=== PATIENT | male | born 1945 | race Caucasian/White ===

== ENCOUNTER 2018-07-24 18:39 | Inpatient (IN) | payer OTHER ==
[~2018-07-24] VITALS: Ht 180.3 cm; Wt 47.7 kg
[2018-07-24] MEDS ORDERED: HYDROcodone/APAP 5/325 TABLET ONE (18:55)
[2018-07-24] MEDS ORDERED: HYDROcodone/APAP 5/325 TABLET PO ONE (19:00)
[2018-07-24] MEDS ORDERED: PLEASE ENTER ALLERGIES MC SCH (19:00)
[2018-07-24] MEDS ORDERED: PLEASE ENTER HEIGHT AND WEIGHT MC SCH (19:00)
[2018-07-24 19:45] LABS: BASOPHILS # (AUTO) 0.02 x10^3/uL (0-0.1); BASOPHILS % (AUTO) 0 % (0-1); EOSINOPHILS # (AUTO) 0.24 x10^3/uL (0-0.4); EOSINOPHILS % (AUTO) 3 % (1-7); LYMPHOCYTES # (AUTO) 1.09 x10^3/uL (1-3.4); LYMPHOCYTES % (AUTO) 14 % (22-44); MD NO; MEAN CORPUSCULAR HEMOGLOBIN 30.3 pg (27.5-34.5); MEAN CORPUSCULAR HGB CONC 32.5 g/dL (33.2-36.2); MEAN CORPUSCULAR VOLUME 93.1 fL (81-97); MEAN PLATELET VOLUME 9.2 fL (7.4-10.4); MONOCYTES # (AUTO) 0.43 x10^3/uL (0.2-0.8); MONOCYTES % (AUTO) 6 % (2-9); NEUTROPHILS # (AUTO) 5.93 x10^3/uL (1.8-6.8); NEUTROPHILS % (AUTO) 77 % (42-75); PLATELET COUNT 183 x10^3/uL (130-400); RED CELL DISTRIBUTION WIDTH 14.3 % (9.4-14.8)
[2018-07-24 19:54] LABS: ALBUMIN 3.4 g/dL (3.4-5.0); ANION GAP 6 mmol/L (5-15); CALCIUM 8.6 mg/dL (8.5-10.1); CHLORIDE 106 mmol/L (98-107); CREATININE 0.63 mg/dL (0.7-1.3)
[2018-07-24 20:47] LABS: MICROSCOPIC NOT IND
[2018-07-24 20:48] LABS: CULTURE INDICATED? NO
[2018-07-24] MEDS ORDERED: KETOROLAC 30 MG/1 ML IM ONE (21:00)
[2018-07-24] MEDS ORDERED: KETOROLAC 30 MG/1 ML ONE (21:03)
[2018-07-24] MEDS ORDERED: SODIUM CHLORIDE 0.9% 1,000 ML IV SCH (22:38)
[2018-07-24] MEDS ORDERED: BISACODYL 10 MG SUPP PR PRN (23:00)
[2018-07-24] MEDS ORDERED: ONDANSETRON ODT 4 MG PO PRN (23:00)
[2018-07-24] MEDS: ENOXAPARIN 40 MG/0.4 ML SQ SCH (23:00)
[2018-07-24] MEDS ORDERED: ACETAMINOPHEN 325 MG TABLET PO PRN (23:00)
[2018-07-24] MEDS ORDERED: hydrALAzine 20 MG/ML, 1ML IVPush PRN (23:00)
[2018-07-24] MEDS ORDERED: morphine SULFATE 10 MG/ML, 1ML IVPush PRN (23:00)
[2018-07-24] MEDS ORDERED: KETOROLAC 30 MG/1 ML IM PRN (23:00)
[2018-07-24] MEDS ORDERED: LABETALOL 5MG/ML, 20ML IVPush PRN (23:00)
[2018-07-24] MEDS: NICOTINE 14MG/24 HR PATCH.TD24 TD SCH (23:00)
[2018-07-24] MEDS ORDERED: ONDANSETRON 2MG/ML, 2ML IVPush PRN (23:00)
[2018-07-24] MEDS ORDERED: PROMETHAZINE 25 MG/ML, 1ML IM PRN (23:00)
[2018-07-24] MEDS ORDERED: POLYETHYLENE GLYCOL 17 GM PACKET PO PRN (23:00)
[2018-07-24] MEDS ORDERED: GABAPENTIN 300 MG CAPSULE PO PRN (23:00)
[2018-07-24 23:07] LABS: HEMOGLOBIN A1C 5.9 % (4.2-6.3)
[2018-07-24 23:24] LABS: FREE T4 (FREE THYROXINE) 1.2 ng/dL (0.76-1.46); PSA SCREEN 2.17 ng/mL (0.00-4.00); THYROID STIMULATING HORMONE 0.468 mIU/L (0.358-3.740)
[2018-07-25] MEDS ORDERED: ALBUTEROL SULFATE 2.5 MG/3 ML NPPB PRN
[2018-07-25 00:03] VITALS: BP 133/79
[2018-07-25] MEDS: CYCLOBENZAPRINE 10 MG TABLET PO PRN ×3 (01:40→21:03)
[2018-07-25 02:06] VITALS: BP 128/80
[2018-07-25] MEDS: ALBUTEROL SULFATE 2.5 MG/3 ML NPPB SCH ×4 (06:50→20:44)
[2018-07-25 07:45] VITALS: BP 121/76
[2018-07-25] MEDS: SENNA/DOCUSATE TABLET PO SCH (07:53)
[2018-07-25] MEDS: BUDESONIDE 0.5 MG/2 ML INHA NPPB SCH ×2 (08:39→20:43)
[2018-07-25] MEDS ORDERED: FLUTICASONE/VILANTEROL 200-25MCG/INH INH SCH (09:00)
[2018-07-25 12:32] LABS: BASOPHILS # (AUTO) 0.03 x10^3/uL (0-0.1); BASOPHILS % (AUTO) 1 % (0-1); EOSINOPHILS # (AUTO) 0.22 x10^3/uL (0-0.4); EOSINOPHILS % (AUTO) 4 % (1-7); LYMPHOCYTES % (AUTO) 18 % (22-44); MD NO; MEAN CORPUSCULAR HEMOGLOBIN 30.4 pg (27.5-34.5); MEAN CORPUSCULAR HGB CONC 32.5 g/dL (33.2-36.2); MEAN CORPUSCULAR VOLUME 93.5 fL (81-97); MEAN PLATELET VOLUME 8.9 fL (7.4-10.4); MONOCYTES # (AUTO) 0.36 x10^3/uL (0.2-0.8); MONOCYTES % (AUTO) 7 % (2-9); NEUTROPHILS # (AUTO) 3.88 x10^3/uL (1.8-6.8); NEUTROPHILS % (AUTO) 71 % (42-75); PLATELET COUNT 172 x10^3/uL (130-400); RED BLOOD COUNT 3.89 x10^6/uL (4.38-5.82); RED CELL DISTRIBUTION WIDTH 14.1 % (9.4-14.8)
[2018-07-25 12:36] LABS: ALANINE AMINOTRANSFERASE 20 U/L (12-78); ANION GAP 4 mmol/L (5-15); CALCIUM 7.9 mg/dL (8.5-10.1); CHLORIDE 108 mmol/L (98-107); CHOLESTEROL, TOTAL 133 mg/dL (140-239); CREATININE 0.71 mg/dL (0.7-1.3)
[2018-07-25 12:38] LABS: ALKALINE PHOSPHATASE 56 U/L (45-117); BILIRUBIN,TOTAL 0.4 mg/dL (0.2-1.0); CHOL/HDL RATIO 2.5; HDL CHOL % 40 % (26-37); HDL CHOLESTEROL (DIRECT) 53 mg/dL (40-60); LDL CHOLESTEROL,CALCULATED 68 mg/dL (54-169); LDL/HDL RATIO 1.3 (0.5-3.0); TOTAL PROTEIN 5.7 g/dL (6.4-8.2); TRIGLYCERIDES 61 mg/dL (50-200); VLDL CHOLESTEROL 12 mg/dL (0-25)
[2018-07-25 14:53] VITALS: BP 123/79
[2018-07-25] MEDS ORDERED: GABAPENTIN 100 MG CAPSULE ONE (20:53)
[2018-07-25] MEDS ORDERED: GABAPENTIN 300 MG CAPSULE PO SCH (21:00)
[2018-07-25] MEDS: MAGNESIUM OXIDE 400 MG TABLET PO SCH (21:03)
[2018-07-25] MEDS: GABAPENTIN 100 MG CAPSULE PO SCH (21:03)
[2018-07-25 21:45] VITALS: BP 104/67
[2018-07-25] MEDS: ENOXAPARIN 40 MG/0.4 ML SQ SCH (23:00)
[2018-07-25] MEDS: NICOTINE 14MG/24 HR PATCH.TD24 TD SCH (23:00)
[2018-07-26 01:07] VITALS: BP 106/65
[2018-07-26] MEDS: ALBUTEROL SULFATE 2.5 MG/3 ML NPPB SCH ×4 (03:00→21:00)
[2018-07-26 08:00] VITALS: BP 152/88
[2018-07-26] MEDS: MAGNESIUM OXIDE 400 MG TABLET PO SCH ×2 (09:15→20:42)
[2018-07-26] MEDS: CHOLECALCIFEROL 5,000u TAB PO SCH (09:15)
[2018-07-26] MEDS: GABAPENTIN 100 MG CAPSULE PO SCH ×2 (09:15→20:42)
[2018-07-26] MEDS: BUDESONIDE 0.5 MG/2 ML INHA NPPB SCH ×2 (10:30→21:00)
[2018-07-26] MEDS: SENNA/DOCUSATE TABLET PO SCH (11:47)
[2018-07-26 13:43] LABS: MICROSCOPIC NOT IND
[2018-07-26 13:44] VITALS: BP 107/69
[2018-07-26 13:47] LABS: CULTURE INDICATED? NO
[2018-07-26 21:58] VITALS: BP 121/80
[2018-07-26] MEDS: NICOTINE 14MG/24 HR PATCH.TD24 TD SCH (23:00)
[2018-07-26] MEDS: ENOXAPARIN 40 MG/0.4 ML SQ SCH (23:00)
[2018-07-27 02:24] VITALS: BP 100/59
[2018-07-27] MEDS: ALBUTEROL SULFATE 2.5 MG/3 ML NPPB SCH ×4 (03:00→19:16)
[2018-07-27 06:42] VITALS: BP 113/71
[2018-07-27] MEDS: BUDESONIDE 0.5 MG/2 ML INHA NPPB SCH ×2 (06:45→19:17)
[2018-07-27] MEDS: MAGNESIUM OXIDE 400 MG TABLET PO SCH ×2 (08:25→20:53)
[2018-07-27] MEDS: SENNA/DOCUSATE TABLET PO SCH (08:25)
[2018-07-27] MEDS: CHOLECALCIFEROL 5,000u TAB PO SCH (08:25)
[2018-07-27] MEDS: GABAPENTIN 100 MG CAPSULE PO SCH ×2 (08:25→20:53)
[2018-07-27 12:38] VITALS: BP 117/71
[2018-07-27 18:47] VITALS: BP 118/67
[2018-07-27] MEDS: ENOXAPARIN 40 MG/0.4 ML SQ SCH (20:58)
[2018-07-27] MEDS: NICOTINE 14MG/24 HR PATCH.TD24 TD SCH (20:59)
[2018-07-28 00:54] VITALS: BP 97/54
[2018-07-28] MEDS: ALBUTEROL SULFATE 2.5 MG/3 ML NPPB SCH ×4 (02:37→20:06)
[2018-07-28] MEDS: CYCLOBENZAPRINE 10 MG TABLET PO PRN (04:48)
[2018-07-28 06:54] VITALS: BP 96/62
[2018-07-28] MEDS: BUDESONIDE 0.5 MG/2 ML INHA NPPB SCH ×2 (07:40→20:06)
[2018-07-28] MEDS: GABAPENTIN 100 MG CAPSULE PO SCH ×3 (08:20→20:57)
[2018-07-28] MEDS: CHOLECALCIFEROL 5,000u TAB PO SCH (08:20)
[2018-07-28] MEDS: MAGNESIUM OXIDE 400 MG TABLET PO SCH ×2 (08:20→20:57)
[2018-07-28] MEDS: SENNA/DOCUSATE TABLET PO SCH (08:21)
[2018-07-28] MEDS: LIDOCAINE 4% CREAM 5GM TUBE TP SCH ×3 (11:29→20:58)
[2018-07-28 12:35] VITALS: BP 115/75
[2018-07-28 20:52] VITALS: BP 120/71
[2018-07-28] MEDS: ENOXAPARIN 40 MG/0.4 ML SQ SCH (20:57)
[2018-07-28] MEDS: NICOTINE 14MG/24 HR PATCH.TD24 TD SCH (20:58)
[2018-07-29 02:18] VITALS: BP 114/72
[2018-07-29] MEDS: ALBUTEROL SULFATE 2.5 MG/3 ML NPPB SCH ×3 (03:00→14:00)
[2018-07-29] MEDS: LIDOCAINE 4% CREAM 5GM TUBE TP SCH ×2 (06:12→11:35)
[2018-07-29 07:50] VITALS: BP 101/71
[2018-07-29] MEDS: BUDESONIDE 0.5 MG/2 ML INHA NPPB SCH (08:15)
[2018-07-29] MEDS: GABAPENTIN 100 MG CAPSULE PO SCH (08:38)
[2018-07-29] MEDS: MAGNESIUM OXIDE 400 MG TABLET PO SCH (08:40)
[2018-07-29] MEDS: CHOLECALCIFEROL 5,000u TAB PO SCH (08:41)
[2018-07-29] MEDS: SENNA/DOCUSATE TABLET PO SCH (08:41)
[2018-07-29] MEDS ORDERED: CYCL-259 PO (10:50)
[2018-07-29] MEDS ORDERED: CHOL500015 PO (10:50)
[2018-07-29] MEDS ORDERED: GABA-826 PO (10:51)
[2018-07-29 12:43] VITALS: BP 110/74
[2018-07-29 14:29] VITALS: BP 144/78
== END 2018-07-29 15:00 | disposition left against medical advice (07) | DRG 542 ==
LOC: ED 22:20 → EDIP 22:30 → 4NOR 23:57 → DCLOUNGE 07-29 14:44
PROVIDERS: ADMIT Internal Medicine; ATTEND Internal Medicine
DX: M80.08XA Age-related osteoporosis with current pathological fracture, vertebra(e), initial encounter for fracture (principal); E43 Unspecified severe protein-calorie malnutrition; J96.10 Chronic respiratory failure, unspecified whether with hypoxia or hypercapnia; R64 Cachexia; Z68.1 Body mass index [BMI] 19.9 or less, adult; S33.5XXA Sprain of ligaments of lumbar spine, initial encounter; F17.210 Nicotine dependence, cigarettes, uncomplicated; J44.9 Chronic obstructive pulmonary disease, unspecified; G89.29 Other chronic pain; M54.9 Dorsalgia, unspecified; M47.816 Spondylosis without myelopathy or radiculopathy, lumbar region; E83.42 Hypomagnesemia; Z79.899 Other long term (current) drug therapy; X50.0XXA Overexertion from strenuous movement or load, initial encounter; Y93.F2 Activity, caregiving, lifting; Y99.0 Civilian activity done for income or pay
CPT/HCPCS: 36415; 72110; 99285; J7613; J7626; 72131; 72148; 80048; 80053; 80061; 81003; 82040; 82306; 82607; 83036; 83735; 84439; 84443; 85025; 94640; 96372; G0103; G0378; J1885; J7030

== ENCOUNTER 2018-07-29 17:50 | Emergency (ER) | payer OTHER ==
[~2018-07-29] VITALS: Ht 180.3 cm; Wt 45.5 kg
[~2018-07-29 17:50] MED LIST: CHOL500015 PO; CYCL-259 PO; GABA-826 PO
[2018-07-29] MEDS ORDERED: HYDROcodone/APAP 5/325 TABLET ONE (18:28)
[2018-07-29] MEDS ORDERED: HYDROcodone/APAP 5/325 TABLET PO ONE (18:30)
[2018-07-29 19:31] VITALS: BP 134/73
== END 2018-07-29 21:45 | disposition short-term general hospital (02) ==
LOC: ED 18:31
DX: G89.29 Other chronic pain (principal); M54.5 Low back pain; E46 Unspecified protein-calorie malnutrition; R53.81 Other malaise; J43.9 Emphysema, unspecified
CPT/HCPCS: 99285

== ENCOUNTER 2019-08-06 15:53 | Inpatient (IN) | payer OTHER ==
[~2019-08-06] VITALS: Ht 180.3 cm; Wt 48.8 kg
--- NOTE | 2019-08-06 16:07 | NUR ---
PT BIB BY [facility]. STATES HS FELT ILL FOR 3 DAYS. HE HASNT BEEN SLEEPING.IT HAS BEEN 2 OR 3 DAYS SINCE HE LAST ATE. BARLEY ABLE TO DRINK WATER. PT IN HOSPITAL BED. CALL LIGHT WITHIN REACH
[2019-08-06] MEDS ORDERED: ONDANSETRON 2MG/ML, 2ML IVPush ONE (16:30)
[2019-08-06 17:08] LABS: BASOPHILS % (AUTO) 0 % (0-1); EOSINOPHILS # (AUTO) 0.16 x10^3/uL (0-0.4); EOSINOPHILS % (AUTO) 1 % (1-7); LYMPHOCYTES # (AUTO) 0.34 x10^3/uL (1-3.4); LYMPHOCYTES % (AUTO) 3 % (22-44); MD NO; MEAN CORPUSCULAR HEMOGLOBIN 31.5 pg (27.5-34.5); MEAN CORPUSCULAR HGB CONC 32.1 g/dL (33.2-36.2); MEAN CORPUSCULAR VOLUME 98.3 fL (81-97); MEAN PLATELET VOLUME 9.7 fL (7.4-10.4); MONOCYTES # (AUTO) 0.31 x10^3/uL (0.2-0.8); MONOCYTES % (AUTO) 3 % (2-9); NEUTROPHILS # (AUTO) 11.48 x10^3/uL (1.8-6.8); NEUTROPHILS % (AUTO) 93 % (42-75); PLATELET COUNT 191 x10^3/uL (130-400); RED BLOOD COUNT 4.86 x10^6/uL (4.38-5.82); RED CELL DISTRIBUTION WIDTH 14.5 % (9.4-14.8)
[2019-08-06] MEDS ORDERED: ONDANSETRON 2MG/ML, 2ML ONE (17:15)
[2019-08-06 17:19] LABS: ALANINE AMINOTRANSFERASE 647 U/L (12-78); ALBUMIN 3.1 g/dL (3.4-5.0); ANION GAP 3 mmol/L (5-15); CALCIUM 8.6 mg/dL (8.5-10.1); CHLORIDE 104 mmol/L (98-107); CREATININE 2.24 mg/dL (0.7-1.3)
[2019-08-06 17:23] LABS: ALKALINE PHOSPHATASE 102 U/L (45-117); BILIRUBIN,TOTAL 1.3 mg/dL (0.2-1.0); TOTAL PROTEIN 7.6 g/dL (6.4-8.2)
--- NOTE | 2019-08-06 17:43 | NUR ---
PT RESTING IN HOSPITAL BED. UNDER 2 BLANKETS AND USING THE AIR WARMER TO HEAT THE BLANKETS. LAB IS IN WITH PT TAKING BLOOD CULTURES. NO REQUESTS AT THIS TIME
[2019-08-06] MEDS ORDERED: CEFTRIAXONE PMX 1GM/50ML 50 ML ONE (17:59)
[2019-08-06] MEDS ORDERED: CEFTRIAXONE PMX 1GM/50ML 50 ML IVPB ONE (18:00)
[2019-08-06] MEDS ORDERED: AZITHROMYCIN 500 MG in SODIUM CHLORIDE 0.9% 250 ML IV ONE (18:00)
[2019-08-06] MEDS ORDERED: SODIUM CHLORIDE 0.9% 1,000ML IVBOLUS ONE (18:00)
[2019-08-06 18:11] LABS: TROPONIN I 0.218 ng/mL (0.000-0.045)
--- NOTE | 2019-08-06 19:03 | NUR ---
PT IN HOSPITAL BED. ABX RUNNING IN IV. TV ON. WARM BLANKET PROVIDED. BLANKET WARMER ON. CALL LIGHT WITHIN REACH.
[2019-08-06] MEDS ORDERED: LIDODERM 5% PATCH TD PRN (20:30)
[2019-08-06] MEDS ORDERED: PHARMACY MAY ADJ FOR RENAL FX MC PRN (20:30)
[2019-08-06] MEDS ORDERED: NICOTINE 14MG/24 HR PATCH.TD24 TD PRN (20:30)
[2019-08-06] MEDS ORDERED: DOCUSATE 100 MG CAPSULE PO PRN (20:30)
--- NOTE | 2019-08-06 21:08 | NUR ---
PT RESTING IN HOPSITAL BED. AWAITING ROOM UPSTAIRS. NO REQUESTS AT THIS TIME
--- NOTE | 2019-08-06 22:10 | NUR ---
REPORT GIVEN TO MILKA CELESTE
--- NOTE | 2019-08-06 22:17 | NUR ---
RECEIVED REPORT FROM YUMIKO RN AT [id number] TO ASSUME CARE OF PT.
[2019-08-06 23:21] LABS: TROPONIN I 0.194 ng/mL (0.000-0.045)
[2019-08-06] MEDS ORDERED: HEPARIN 5,000 UNITS/ML, 1ML ONE (23:34)
[2019-08-06] MEDS ORDERED: BENZONATATE 100 MG CAPSULE ONE (23:34)
[2019-08-06] MEDS: D5%-0.45% NACL 1,000 ML IV SCH (23:57)
[2019-08-06] MEDS: BENZONATATE 100 MG CAPSULE PO SCH (23:57)
[2019-08-06] MEDS: HEPARIN 5,000 UNITS/ML, 1ML SQ SCH (23:58)
--- NOTE | 2019-08-06 23:59 | NUR ---
PT. MEDICATED PER MAR. PROVIDED WITH SNACKS PER REQUEST FOR FOOD. PT. DENIES OTHER NEEDS. MARKIE PAW WARMER IN USE FOR COMFORT. CALL LIGHT IN REACH. ALL SAFETY MEASURES OBSERVED. ALL MONITORS IN PLACE.
--- NOTE | 2019-08-07 00:58 | NUR ---
FLU SWAB COLLECTED AND SENT TO LAB. PT. AWAITING BED ASSIGNMENT PENDING FLU RESULTS.
--- NOTE | 2019-08-07 01:24 | NUR ---
CALLED LAB TO ENSURE THEY GOT THE FLU SWAB THAT HAD BEEN SENT; THEY ARE RUNNING IT NOW. PT. PROVIDED WITH SANDWICH PER REQUEST FOR FOOD. DENIES OTHER NEEDS.
--- NOTE | 2019-08-07 01:59 | NUR ---
CALL PLACED TO LAB AGAIN ABOUT FLU SWAB; THIS RN TOLD THAT SWAB CAN NOT BE FOUND.
--- NOTE | 2019-08-07 02:01 | NUR ---
LAB NOW REPORTS SPECIMEN HAS BEEN FOUND AND IS BEING STARTED NOW.
[2019-08-07 02:26] LABS: RAPID INFLUENZA A Negative (Negative); RAPID INFLUENZA B Negative (Negative)
--- NOTE | 2019-08-07 02:29 | NUR ---
PT. ATE 1/2 OF SANDWICH PROVIDED ALONG WITH SOME APPLESAUCE AND JELLO. PT. ASSISTED TO VOID VIA URINAL. 50ML OF CLEAR YELLOW URINE. DENIES OTHER NEEDS. ALL SAFETY MEASURES OBSERVED. ALL MONITORS REMAIN IN PLACE. MARKIE SCHNEIDER IN USE FOR COMFORT.
--- NOTE | 2019-08-07 02:36 | NUR ---
REPORT TO BOOKER AUGUSTE. FLOOR READY FOR PT. TRANSPORT.
[2019-08-07 03:00] VITALS: BP 124/76
[2019-08-07 04:51] LABS: ANION GAP 4 mmol/L (5-15); CALCIUM 7.8 mg/dL (8.5-10.1); CHLORIDE 107 mmol/L (98-107); CREATININE 1.91 mg/dL (0.7-1.3)
[2019-08-07 04:55] LABS: TROPONIN I 0.184 ng/mL (0.000-0.045)
[2019-08-07 04:58] LABS: BASOPHILS % (AUTO) 0 % (0-1); EOSINOPHILS # (AUTO) 0.07 x10^3/uL (0-0.4); EOSINOPHILS % (AUTO) 1 % (1-7); LYMPHOCYTES # (AUTO) 0.41 x10^3/uL (1-3.4); LYMPHOCYTES % (AUTO) 5 % (22-44); MD NO; MEAN CORPUSCULAR HEMOGLOBIN 31.5 pg (27.5-34.5); MEAN CORPUSCULAR HGB CONC 32.1 g/dL (33.2-36.2); MEAN CORPUSCULAR VOLUME 98.3 fL (81-97); MEAN PLATELET VOLUME 10.6 fL (7.4-10.4); MONOCYTES # (AUTO) 0.29 x10^3/uL (0.2-0.8); MONOCYTES % (AUTO) 3 % (2-9); NEUTROPHILS # (AUTO) 8.29 x10^3/uL (1.8-6.8); NEUTROPHILS % (AUTO) 92 % (42-75); PLATELET COUNT 164 x10^3/uL (130-400); RED BLOOD COUNT 3.79 x10^6/uL (4.38-5.82); RED CELL DISTRIBUTION WIDTH 13.9 % (9.4-14.8)
[2019-08-07] MEDS ORDERED: ALBUTEROL SULFATE 2.5 MG/3 ML NPPB PRN (05:00)
[2019-08-07 08:25] VITALS: BP 130/82
[2019-08-07] MEDS: BENZONATATE 100 MG CAPSULE PO SCH ×3 (09:00→21:13)
[2019-08-07] MEDS: HEPARIN 5,000 UNITS/ML, 1ML SQ SCH ×3 (09:05→23:12)
[2019-08-07] MEDS: CEFTRIAXONE PMX 1GM/50ML 50 ML IV SCH ×2 (09:57→21:13)
[2019-08-07] MEDS: D5%-0.45% NACL 1,000 ML IV SCH ×2 (10:01→19:49)
[2019-08-07] MEDS: DOXYCYCLINE 100 MG in DEXTROSE 5% 250 ML IV SCH ×2 (11:10→22:09)
[2019-08-07 13:17] VITALS: BP 103/63
[2019-08-07] MEDS ORDERED: TRAZODONE 50MG TABLET ONE (18:13)
[2019-08-07] MEDS: TRAZODONE 50MG TABLET PO PRN (18:16)
[2019-08-07 18:39] VITALS: BP 92/57
[2019-08-07] MEDS: MIRTAZAPINE 15 MG TABLET PO SCH (21:13)
[2019-08-07] MEDS: ONDANSETRON 2MG/ML, 2ML IVPush PRN (22:09)
[2019-08-08 01:57] VITALS: BP_SYST 100; BP_SYST 98; BP_DIAS 46; BP_DIAS 66
[2019-08-08] MEDS: D5%-0.45% NACL 1,000 ML IV SCH ×2 (06:34→17:07)
[2019-08-08 06:51] VITALS: BP 135/81
[2019-08-08] MEDS: HEPARIN 5,000 UNITS/ML, 1ML SQ SCH ×2 (08:00→16:00)
[2019-08-08] MEDS: CEFTRIAXONE PMX 1GM/50ML 50 ML IV SCH ×2 (08:07→21:34)
[2019-08-08] MEDS: BENZONATATE 100 MG CAPSULE PO SCH ×3 (08:07→21:34)
[2019-08-08 09:24] LABS: TROPONIN I 0.146 ng/mL (0.000-0.045)
[2019-08-08 09:25] LABS: ANION GAP 7 mmol/L (5-15); CHLORIDE 107 mmol/L (98-107); CREATININE 1.28 mg/dL (0.7-1.3)
[2019-08-08 09:44] LABS: MD YES
[2019-08-08 10:24] LABS: MEAN CORPUSCULAR HEMOGLOBIN 31.3 pg (27.5-34.5); MEAN CORPUSCULAR HGB CONC 32.1 g/dL (33.2-36.2); MEAN CORPUSCULAR VOLUME 97.5 fL (81-97); MEAN PLATELET VOLUME 10.4 fL (7.4-10.4); PLATELET COUNT 119 x10^3/uL (130-400); RED BLOOD COUNT 3.72 x10^6/uL (4.38-5.82); RED CELL DISTRIBUTION WIDTH 14.3 % (9.4-14.8)
[2019-08-08 10:27] LABS: <RBC MORPHOLOGY> NORMAL; BAND#(MANUAL) 0.08 x10^3/uL; BANDS%(MANUAL) 1 % (0-7); EOS#(MANUAL) 0.31 x10^3/uL (0.0-0.4); EOS% (MANUAL) 4 % (1-7); LYMPH#(MANUAL) 0.39 x10^3/uL (1-3.4); LYMPHS% (MANUAL) 5 % (22-44); MONOS#(MANUAL) 0.15 x10^3/uL (0.3-2.7); MONOS% (MANUAL) 2 % (2-9); SEG#(MANUAL) 6.78 x10^3/uL (1.8-6.8); SEGS% (MANUAL) 88 % (42-75)
[2019-08-08 10:28] LABS: <PLATELET ESTIMATE> DECREASED; <PLT MORPHOLOGY> NORMAL PLT MORPH
[2019-08-08] MEDS: DOXYCYCLINE 100 MG in DEXTROSE 5% 250 ML IV SCH ×2 (11:33→23:33)
[2019-08-08 14:07] VITALS: BP 129/79
[2019-08-08 16:42] LABS: TROPONIN I 0.136 ng/mL (0.000-0.045)
[2019-08-08 19:08] VITALS: BP 100/61
[2019-08-08] MEDS: TRAZODONE 50MG TABLET PO PRN (21:34)
[2019-08-08] MEDS: MIRTAZAPINE 15 MG TABLET PO SCH (21:34)
[2019-08-08] MEDS ORDERED: MORPHINE SULFATE 4 MG/ML, 1ML IVPush ONE (23:30)
[2019-08-09 01:01] VITALS: BP 95/59
[2019-08-09] MEDS: D5%-0.45% NACL 1,000 ML IV SCH ×2 (04:43→09:00)
[2019-08-09] MEDS: HEPARIN 5,000 UNITS/ML, 1ML SQ SCH ×3 (08:00→16:00)
[2019-08-09] MEDS: CEFTRIAXONE PMX 1GM/50ML 50 ML IV SCH ×2 (08:30→20:47)
[2019-08-09] MEDS: BENZONATATE 100 MG CAPSULE PO SCH ×3 (09:16→20:47)
[2019-08-09 09:33] VITALS: BP 108/65
[2019-08-09] MEDS: DOXYCYCLINE 100 MG in DEXTROSE 5% 250 ML IV SCH ×2 (14:21→23:05)
[2019-08-09 14:52] VITALS: BP 93/59
[2019-08-09] MEDS: TRAZODONE 50MG TABLET PO PRN (17:07)
[2019-08-09 20:16] VITALS: BP 94/66
[2019-08-09] MEDS: MIRTAZAPINE 15 MG TABLET PO SCH (20:47)
[2019-08-09] MEDS ORDERED: TRAZODONE 50MG TABLET PO ONE (21:00)
[2019-08-09] MEDS ORDERED: ACETAMINOPHEN 500 MG TABLET PO ONE (23:30)
[2019-08-09] MEDS ORDERED: ACETAMINOPHEN 500 MG TABLET ONE (23:31)
[2019-08-10] MEDS: D5%-0.45% NACL 1,000 ML IV SCH ×2 (05:05→13:00)
[2019-08-10] MEDS: ONDANSETRON 2MG/ML, 2ML IVPush PRN ×3 (05:08→21:04)
[2019-08-10 06:59] VITALS: BP 127/84
[2019-08-10] MEDS: BENZONATATE 100 MG CAPSULE PO SCH ×3 (08:26→20:57)
[2019-08-10] MEDS: HEPARIN 5,000 UNITS/ML, 1ML SQ SCH ×4 (08:26→23:30)
[2019-08-10] MEDS: CEFTRIAXONE PMX 1GM/50ML 50 ML IV SCH (08:26)
[2019-08-10] MEDS: BUTALB/APAP/CAFFEINE 50MG/325MG/40MG PO PRN ×3 (10:46→23:30)
[2019-08-10] MEDS: DOXYCYCLINE 100 MG in DEXTROSE 5% 250 ML IV SCH (11:30)
[2019-08-10 14:05] VITALS: BP 97/67
[2019-08-10 20:39] VITALS: BP 117/73
[2019-08-10] MEDS: CEFDINIR 300 MG CAPSULE PO SCH (20:56)
[2019-08-10] MEDS: MIRTAZAPINE 15 MG TABLET PO SCH (20:57)
[2019-08-10] MEDS: TRAZODONE 50MG TABLET PO PRN (20:57)
[2019-08-11 01:33] VITALS: BP 114/77
[2019-08-11] MEDS: D5%-0.45% NACL 1,000 ML IV SCH ×2 (02:21→20:53)
[2019-08-11 05:34] LABS: BASOPHILS # (AUTO) 0.02 x10^3/uL (0-0.1); BASOPHILS % (AUTO) 0 % (0-1); EOSINOPHILS # (AUTO) 0.25 x10^3/uL (0-0.4); EOSINOPHILS % (AUTO) 4 % (1-7); LYMPHOCYTES # (AUTO) 1.19 x10^3/uL (1-3.4); LYMPHOCYTES % (AUTO) 19 % (22-44); MD NO; MEAN CORPUSCULAR HEMOGLOBIN 31.9 pg (27.5-34.5); MEAN CORPUSCULAR HGB CONC 32.4 g/dL (33.2-36.2); MEAN CORPUSCULAR VOLUME 98.5 fL (81-97); MEAN PLATELET VOLUME 9.8 fL (7.4-10.4); MONOCYTES # (AUTO) 0.36 x10^3/uL (0.2-0.8); MONOCYTES % (AUTO) 6 % (2-9); NEUTROPHILS % (AUTO) 71 % (42-75); PLATELET COUNT 183 x10^3/uL (130-400); RED BLOOD COUNT 3.24 x10^6/uL (4.38-5.82); RED CELL DISTRIBUTION WIDTH 14.4 % (9.4-14.8)
[2019-08-11 05:38] LABS: ALBUMIN 2.2 g/dL (3.4-5.0); ANION GAP 2 mmol/L (5-15); CHLORIDE 104 mmol/L (98-107); CREATININE 0.75 mg/dL (0.7-1.3)
[2019-08-11 06:40] VITALS: BP 127/82
[2019-08-11] MEDS ORDERED: MAGNESIUM SULFATE PMX 2GM/50ML 50 ML IV ONE (07:30)
[2019-08-11] MEDS ORDERED: POTASSIUM PHOSPHATE 44 MEQ in SODIUM CHLORIDE 0.9% 500 ML IV ONE (07:30)
[2019-08-11] MEDS ORDERED: CALCIUM GLUCONATE 4.6 MEQ in SODIUM CHLORIDE 0.9% 50 ML IV ONE (07:30)
[2019-08-11] MEDS: BENZONATATE 100 MG CAPSULE PO SCH ×3 (08:19→20:53)
[2019-08-11] MEDS: CEFDINIR 300 MG CAPSULE PO SCH ×2 (08:19→20:53)
[2019-08-11] MEDS: HEPARIN 5,000 UNITS/ML, 1ML SQ SCH ×2 (08:19→15:07)
[2019-08-11] MEDS: OXYcodone/APAP 5/325MG TABLET PO PRN ×2 (10:32→17:24)
[2019-08-11 12:10] VITALS: BP 105/65
[2019-08-11] MEDS: DOCUSATE 100 MG CAPSULE PO SCH ×2 (15:06→20:53)
[2019-08-11 15:19] LABS: SALICYLATE LEVEL < 1.7 mg/dL (2.8-20.0)
[2019-08-11] MEDS ORDERED: CEFD300C37 PO (15:46)
[2019-08-11] MEDS ORDERED: BUTA-177 PO (15:46)
[2019-08-11] MEDS ORDERED: NICO-486 TD (15:46)
[2019-08-11] MEDS ORDERED: MIRT-34 PO (15:46)
[2019-08-11] MEDS ORDERED: CALC500T10 PO (16:01)
[2019-08-11] MEDS ORDERED: MAGN400T36 PO (16:01)
[2019-08-11 18:47] VITALS: BP 119/74
[2019-08-11] MEDS: TRAZODONE 50MG TABLET PO PRN (20:53)
[2019-08-11] MEDS: MIRTAZAPINE 15 MG TABLET PO SCH (20:53)
[2019-08-11 21:49] LABS: AMPHETAMINE SCREEN, URINE Negative (Negative); BARBITURATE SCREEN, URINE Positive (Negative); BENZODIAZEPINE SCREEN, URINE Negative (Negative); CANNABINOID SCREEN, URINE Negative (Negative); COCAINE SCREEN, URINE Negative (Negative); METHADONE SCREEN, URINE Negative (Negative); OPIATE SCREEN, URINE Positive (Negative)
[2019-08-12] MEDS: HEPARIN 5,000 UNITS/ML, 1ML SQ SCH ×3 (00:27→08:17)
[2019-08-12] MEDS: OXYcodone/APAP 5/325MG TABLET PO PRN ×2 (00:31→08:22)
[2019-08-12 00:32] VITALS: BP 120/76
[2019-08-12] MEDS: D5%-0.45% NACL 1,000 ML IV SCH ×2 (04:00→08:17)
[2019-08-12 06:48] LABS: ALBUMIN 2.2 g/dL (3.4-5.0); ANION GAP 3 mmol/L (5-15); CALCIUM 6.9 mg/dL (8.5-10.1); CHLORIDE 104 mmol/L (98-107)
[2019-08-12] MEDS ORDERED: MAGNESIUM SULFATE PMX 2GM/50ML 50 ML IV ONE (07:00)
[2019-08-12] MEDS ORDERED: CALCIUM GLUCONATE 4.6 MEQ in SODIUM CHLORIDE 0.9% 50 ML IV ONE (07:00)
[2019-08-12 07:02] LABS: BASOPHILS # (AUTO) 0.06 x10^3/uL (0-0.1); BASOPHILS % (AUTO) 1 % (0-1); EOSINOPHILS # (AUTO) 0.17 x10^3/uL (0-0.4); EOSINOPHILS % (AUTO) 4 % (1-7); LYMPHOCYTES # (AUTO) 1.22 x10^3/uL (1-3.4); LYMPHOCYTES % (AUTO) 25 % (22-44); MD NO; MEAN CORPUSCULAR HEMOGLOBIN 31.2 pg (27.5-34.5); MEAN CORPUSCULAR HGB CONC 32.1 g/dL (33.2-36.2); MEAN PLATELET VOLUME 9.7 fL (7.4-10.4); MONOCYTES # (AUTO) 0.37 x10^3/uL (0.2-0.8); MONOCYTES % (AUTO) 8 % (2-9); NEUTROPHILS # (AUTO) 3.05 x10^3/uL (1.8-6.8); NEUTROPHILS % (AUTO) 63 % (42-75); PLATELET COUNT 175 x10^3/uL (130-400); RED BLOOD COUNT 3.14 x10^6/uL (4.38-5.82)
[2019-08-12 07:14] VITALS: BP 124/72
[2019-08-12] MEDS: DOCUSATE 100 MG CAPSULE PO SCH (08:16)
[2019-08-12] MEDS: BENZONATATE 100 MG CAPSULE PO SCH (08:16)
[2019-08-12] MEDS: CEFDINIR 300 MG CAPSULE PO SCH (08:16)
== END 2019-08-12 10:45 | DRG 193 ==
LOC: ED 18:15 → EDIP 18:16 → ED 18:48 → 5SO 08-07 02:53 → 4EST 08-08 14:19
PROVIDERS: ADMIT Internal Medicine; ATTEND Family Medicine
DX: J15.9 Unspecified bacterial pneumonia (principal); N17.0 Acute kidney failure with tubular necrosis; J44.0 Chronic obstructive pulmonary disease with (acute) lower respiratory infection; R64 Cachexia; J96.10 Chronic respiratory failure, unspecified whether with hypoxia or hypercapnia; E46 Unspecified protein-calorie malnutrition; Z68.1 Body mass index [BMI] 19.9 or less, adult; R45.851 Suicidal ideations; Z88.6 Allergy status to analgesic agent; Z88.8 Allergy status to other drugs, medicaments and biological substances; E83.39 Other disorders of phosphorus metabolism; E83.42 Hypomagnesemia; E83.51 Hypocalcemia; E86.0 Dehydration; F17.210 Nicotine dependence, cigarettes, uncomplicated; F39 Unspecified mood [affective] disorder; G89.29 Other chronic pain; I45.10 Unspecified right bundle-branch block; M81.0 Age-related osteoporosis without current pathological fracture; Z80.1 Family history of malignant neoplasm of trachea, bronchus and lung
CPT/HCPCS: 36415; 71045; 76700; 80048; 80053; 80069; 80074; 80307; 83605; 83690; 83735; 84145; 84484; 85025; 87040; 87400; 93005; 96374; 96375; G0378; J0456; J0610; J0696; J1644; J2405; J7060; J2270; J3475; J7030; J7040; J7050